=== PATIENT | male | born 2000 | race Caucasian/White ===

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

== ENCOUNTER 2019-02-02 16:49 | Emergency (ER) | payer SELFPAY ==
[~2019-02-02] VITALS: Ht 180.3 cm; Wt 66.2 kg
[2019-02-02 17:04] VITALS: Ht 180.3 cm; Wt 66.2 kg
[2019-02-02 17:55] VITALS: BP 117/81
== END 2019-02-02 17:55 | disposition home or self-care (01) ==
LOC: ED 16:49
DX: S39.012A Strain of muscle, fascia and tendon of lower back, initial encounter (principal); X58.XXXA Exposure to other specified factors, initial encounter; Y93.89 Activity, other specified; Y92.89 Other specified places as the place of occurrence of the external cause; Y99.8 Other external cause status

== ENCOUNTER 2020-02-19 15:52 | Emergency (ER) | payer MEDICAID, SELFPAY ==
[~2020-02-19] VITALS: Ht 177.8 cm; Wt 67.1 kg
[2020-02-19 16:29] VITALS: BP 111/70; Ht 177.8 cm; Wt 67.1 kg
[2020-02-19 18:42] LABS: ALBUMIN 4.6 g/dL (3.4-5.0); ALKALINE PHOSPHATASE 75 U/L (46-116); ALT/SGPT 45 U/L (16-63); AST/SGOT 45 U/L (15-37); BASOPHIL % 0.6 % (0.2-1.5); BILIRUBIN TOTAL 0.7 mg/dL (0.20-1.00); C REACTIVE PROTEIN 0.3 mg/dL (<=0.9); CALCIUM 9.8 mg/dL (8.5-10.1); CARBON DIOXIDE 33.4 mmol/L (21-32); CHLORIDE SERUM 105 mmol/L (98-107); GFR1 > 60 mL/min; GLUCOSE SERUM 73 mg/dL (74-106); LIPASE 108 IU/L (73-393); PLATELET COUNT 237 x10^3mcL (152-348); POTASSIUM SERUM 4.4 mmol/L (3.5-5.1); RED CELL DISTRIBUTION WIDTH 12.4 % (12.1-16.2); SODIUM SERUM 144 mmol/L (136-145)
[2020-02-19 18:49] LABS: rbc morphology (normal/abnorm) NORMAL (NORMAL)
== END 2020-02-19 18:58 | disposition home or self-care (01) ==
LOC: ED 15:52
PROVIDERS: Emergency Medicine
DX: N20.0 Calculus of kidney (principal)